=== PATIENT | female | born 1990 | race Caucasian/White ===

== ENCOUNTER 2019-01-18 05:11 | Emergency (ER) | payer BC, MEDICAID ==
[2019-01-18] MEDS ORDERED: KETOROLAC TROMETHAMINE INJ/PF 30 MG/1 ML SDV IV ONE (06:43)
[2019-01-18] MEDS ORDERED: ONDANSETRON HCL INJ/PF 4 MG/2 ML SDV IV ONE (06:43)
[2019-01-18 07:28] LABS: ABSOLUTE EOSINOPHILS # (AUTO) 0.2 10^3/uL (0.0-0.6); ABSOLUTE MONOCYTES (AUTO) 0.4 10^3/uL (0.1-1.4); ABSOLUTE NEUT (AUTO) 4.2 10^3/uL (1.7-8.2); BASOPHILS % (AUTO) 0.6 % (0-2); EOSINOPHILS % (AUTO) 2.8 % (0-6); HEMATOCRIT 39.2 % (36.0-47.0); HEMOGLOBIN 13.1 g/dL (12.0-15.5); LYMPHOCYTES % (AUTO) 17.3 % (13-45); MEAN CORPUSCULAR HEMOGLOBIN 27.8 pg (27.0-33.4); MEAN CORPUSCULAR HGB CONC 33.6 g/dL (32.0-36.0); MEAN CORPUSCULAR VOLUME 83 fl (80-97); MONOCYTES % (AUTO) 6.4 % (3-13); PLATELET COUNT 234 10^3/uL (150-450); RED BLOOD COUNT 4.72 10^6/uL (3.72-5.28); RED CELL DISTRIBUTION WIDTH 16.6 % (11.5-14.0); SEGMENTED NEUTROPHILS % (AUTO) 72.9 % (42-78); TOTAL CELLS COUNTED % (AUTO) 100 %; WHITE BLOOD COUNT 5.8 10^3/uL (4.0-10.5)
[2019-01-18 07:46] LABS: ALANINE AMINOTRANSFERASE 539 U/L (9-52); ALBUMIN 4.1 g/dL (3.5-5.0); ALKALINE PHOSPHATASE 291 U/L (38-126); ANION GAP 7 (5-19); BILIRUBIN,DIRECT 1.3 mg/dL (0.0-0.4); BILIRUBIN,TOTAL 1.8 mg/dL (0.2-1.3); BLOOD UREA NITROGEN 11 mg/dL (7-20); CALCIUM 9.9 mg/dL (8.4-10.2); CARBON DIOXIDE 30 mmol/L (22-30); CHLORIDE 105 mmol/L (98-107); GLUCOSE 93 mg/dL (75-110); LIPASE 565.5 U/L (23-300); POTASSIUM 4.9 mmol/L (3.6-5.0); SODIUM 142.4 mmol/L (137-145); TOTAL PROTEIN 7.8 g/dL (6.3-8.2)
[2019-01-18 07:53] LABS: AMORPHOUS SEDIMENT,URINE TRACE /HPF; APPEARANCE,URINE SLIGHTLY-CLOUDY; BILIRUBIN,URINE NEGATIVE (NEGATIVE); COLOR,URINE YELLOW; GLUCOSE, URINE NEGATIVE (NEGATIVE); KETONES,URINE NEGATIVE (NEGATIVE); LEUKOCYTE ESTERASE,URINE SMALL (NEGATIVE); NITRITE,URINE NEGATIVE (NEGATIVE); PROTEIN,URINE NEGATIVE (NEGATIVE)
[2019-01-18 07:54] LABS: ASPARTATE AMINO TRANSFERASE 797 U/L (14-36)
--- NOTE | 2019-01-18 08:27 | RADIOLOGY REPORT (SQ) ---
EXAM DESCRIPTION: U/S ABDOMEN LIMITED W/O DOP COMPLETED DATE/TIME: 01/18/2019 8:08 am REASON FOR STUDY: abdominal pain, eval gallbladder COMPARISON: Abdominal ultrasound 02/07/2015 TECHNIQUE: Dynamic and static grayscale images acquired of the abdomen and recorded on PACS. Monique lozoya selected color Doppler and spectral images recorded. LIMITATIONS: None. FINDINGS: PANCREAS: Midline pancreas unremarkable LIVER: No masses. Echotexture normal. LIVER VASCULATURE: Normal directional flow of the main portal vein and hepatic veins. GALLBLADDER: Innumerable tiny stones layer in the gallbladder causing a [id number] complex. No gallbladder wall thickening or pericholecystic fluid. ULTRASOUND-DETECTED LINDER'S SIGN: Negative. INTRAHEPATIC DUCTS AND COMMON DUCT: CBD and intrahepatic ducts normal caliber. No filling defects. INFERIOR VENA CAVA: Normal flow. AORTA: No aneurysm. RIGHT KIDNEY: Normal size. Normal echogenicity. No solid or suspicious masses. No hydronephrosis. No calcifications. PERITONEAL AND RIGHT PLEURAL SPACE: No ascites or effusions. OTHER: No other significant findings. IMPRESSION: Innumerable tiny stones in the gallbladder. No pericholecystic fluid or sonographic Mur phy's sign TECHNICAL DOCUMENTATION: JOB ID: [id number] [employer]- All Rights Reserved Reading location - IP/workstation name: [email or web address]
--- NOTE | 2019-01-18 09:58 | ER Document Report ---
ED General - General Chief Complaint: Abdominal Pain Stated Complaint: ABDOMINAL PAIN Time Seen by Provider: 01/18/19 06:28 TRAVEL OUTSIDE OF THE [place] IN LAST 30 DAYS: No - HPI Notes: Patient is a 28-year-old female presents emergency department for abdominal pain. Is been present for the last 5-6 weeks. It started approximately 33 weeks gestation of her . She states it was intermittent since then but it seems to be getting more frequent. She has now 2 weeks and the pain is gotten worse. She states it seems to be worsened by food. She has had nausea frequently, occasional episodes of nonbloody, nonbilious emesis. Normal urinary symptoms She was induced at 37 weeks for preeclampsia. is doing well, as his mother. She states she continues to have some vaginal bleeding but it is not significant. - Related Data Allergies/Adverse Reactions: Sulfa (Sulfonamide Antibiotics) Allergy (Severe, Verified 03/25/16 07:03) Facial swelling Past Medical History - General Information source: Patient - Social History Smoking Status: Former Smoker Family History: Reviewed & Not Pertinent Patient has suicidal ideation: No Patient has homicidal ideation: No Renal/ Medical History: Denies: Hx Peritoneal Dialysis Past Surgical History: Reports: Hx Gynecologic Surgery - , Hx Oral Surgery - wisdom teeth Review of Systems - Review of Systems Constitutional: No symptoms reported EENT: No symptoms reported Cardiovascular: No symptoms reported Respiratory: No symptoms reported Gastrointestinal: See HPI Genitourinary: No symptoms reported Female Genitourinary: See HPI Musculoskeletal: No symptoms reported Skin: No symptoms reported Neurological/Psychological: No symptoms reported Physical Exam - Vital signs Vitals: Temp Pulse Resp BP Pulse Ox 98.4 F 98 16 141/96 H 97 01/18/19 05:18 01/18/19 05:18 01/18/19 05:18 01/18/19 05:18 01/18/19 05:18 - Notes Notes: Vital signs reviewed, please refer to chart. Patient is normocephalic, atraumatic. Pupils equal round, reactive to light. Neck is supple without meningismus. Heart is regular rate and rhythm. Lungs are clear to auscultation bilaterally. Abdomen is soft, moderate right upper quadrant tenderness without guarding, normoactive bowel sounds throughout. Extremities without cyanosis, clubbing, edema. Peripheral pulses are equal. Skin is warm and dry. Patient is awake, alert, neurological exam is nonfocal. Course - Re-evaluation Re-evalutation: 01/18/19 09:57 Patient presents emergency department for evaluation. Given her history, biliary colic is highest on my list. Laboratory investigations and imaging were ordered. Imaging did reveal innumerable gallstones, but no signs of cholecystitis, CBD dilation, or a clear oil duct obstruction. Laboratory investigations, however, did reveal elevated AST, ALT, alk phos, mildly elevated lipase. The patient here feels completely asymptomatic. Given these laboratory abnormalities, I did contact on-call surgeon, Dr. Luque. He will come down to see the patient. 01/18/19 12:52 Dr. Luque came down at 11 AM to see the patient. He was concerned that she did have a CBD stone given her lab work. He asked that an MRCP be performed. This was performed. Patient's pain remained minimal. Her abdominal exam remained nonsurgical. MRCP failed to reveal any signs of obstruction or filling defect in the common bile duct. Patient is hopeful to be discharged. She has a and 3-year-old at home, no other family support besides her , who has to work. She states she may be able to be seen for potential cholecystectomy next week. I discussed this with Dr. Luque. He asked that lab work be drawn on Tuesday, and she will follow-up with the surgical clinic. He also asked that strict discharge instructions, detailing symptoms that should prompt her return, as well as a low-fat diet, be given. These were given both verbally and in discharge instructions. She is to return to the emergency department with worsening or new concerning symptoms of any sort. - Vital Signs Vital signs: Temp Pulse Resp BP Pulse Ox 98.2 F 82 16 133/83 H 99 01/18/19 10:11 01/18/19 10:11 01/18/19 10:11 01/18/19 10:11 01/18/19 10:11 - Laboratory Result Diagrams: 01/18/19 07:10 01/18/19 07:10 Laboratory results interpreted by me: 01/18/19 01/18/19 01/18/19 07:10 07:10 07:10 RDW 16.6 H Total Bilirubin 1.8 H Direct Bilirubin 1.3 H AST 797 H ALT 539 H Alkaline Phosphatase 291 H Lipase 565.5 H Urine Blood MODERATE H Urine Urobilinogen 2.0 H Ur Leukocyte Esterase SMALL H - Diagnostic Test Radiology reviewed: Reports reviewed - Innumerable gallstones, no other acute process Discharge - Discharge Clinical Impression: Cholelithiasis, Abnormal LFTs, Right upper quadrant abdominal pain Condition: Stable Disposition: HOME, SELF-CARE Instructions: Gallbladder Disease ([facility]) Additional Instructions: You need to have lab work redrawn on Tuesday. Follow-up with the surgical clinic on Tuesday as well. You should avoid fat in your diet as discussed. If you develop fevers, vomiting, increased abdominal pain, or any other new or concerning symptoms, return immediately to the emergency department for reevaluation. Forms: Follow-Up Laboratory Testing Referrals: MIKE LUQUE MD [[facility]] - Follow up as needed
--- NOTE | 2019-01-18 12:25 | RADIOLOGY REPORT (SQ) ---
EXAM DESCRIPTION: MRI ABDOMEN WITHOUT COMPLETED DATE/TIME: 01/18/2019 12:06 pm REASON FOR STUDY: elevated lfts, cholelithiasis COMPARISON: None. TECHNIQUE: Noncontrast MRCP. Source and MIP images reviewed. LIMITATIONS: None. FINDINGS: GALLBLADDER: There are numerous gallstones. INTRAHEPATIC DUCTS: Nondilated. EXTRAHEPATIC DUCTS: Common duct is normal caliber. No dilatation of the pancreatic duct. No ductal filling defects noted. PANCREAS: Generally homogeneous, no gross mass or significant signal alteration. No surrounding infl ammatory changes or fluid. Pancreatic duct is normal. LIVER, SPLEEN, KIDNEYS, ADRENALS: No significant abnormality. VESSELS: No evidence of aneurysm. Grossly appropriate flow voids in the major vascular structures. LUNG BASES: Grossly clear. OTHER: No other significant finding. IMPRESSION: Gallstones. No other significant findings. TECHNICAL DOCUMENTATION: JOB ID: [id number] [employer]- All Rights Reserved Reading location - IP/workstation name: [email or web address]
[2019-01-18 12:53] VITALS: BP 132/95
--- NOTE | 2019-01-18 13:52 | PDOC CONSULTATION ---
Consultation Consult Date: 01/18/19 Consult reason:: gallstoneswith elevated LFTs History of Present Illness History of Present Illness: TEVIN CAMARILLO is a 28 year old female who is 2 weeks post has been c/o abdominal pains about 5-6 weeks worse after eating a fatty meal.Came to ED because of severe abdominal pains started last night after a fatty meal. Had US which showed gallstones. Her LFTs and lipase are elevated. Patient is feeling better when seen and wants to go home to take care of since her has to go back to work. Suggested MRCP. This showed normal CBD. Social History Smoking Status: Former Smoker Family History Family History: Reviewed & Not Pertinent Parental Family History Reviewed: Yes Children Family History Reviewed: No Sibling(s) Family History Reviewed.: No Medication/Allergy Home Medications: RX: No.116/Iron/Folic/Dha [Expecta Combo Pack] 1 tab PO DAILY 01/30/16 RX: Ferrous Sulfate [Feosol 325 mg Tablet] 325 mg PO BID #60 tablet 03/27/16 Allergies/Adverse Reactions: Sulfa (Sulfonamide Antibiotics) Allergy (Severe, Verified 03/25/16 07:03) Facial swelling Review of Systems Constitutional: PRESENT: other - denies fever/chills Ears: PRESENT: other - no visual/hearing changes Cardiovascular: PRESENT: other - no chest pains/cough Gastrointestinal: PRESENT: abdominal pain Physical Exam Vital Signs: Temp Pulse Resp BP Pulse Ox 97.9 F 88 16 132/95 H 100 01/18/19 12:48 01/18/19 12:48 01/18/19 12:48 01/18/19 12:48 01/18/19 12:48 Intake & Output 01/17/19 01/18/19 01/19/19 06:59 06:59 06:59 Weight 71.6 kg General appearance: PRESENT: no acute distress Head exam: PRESENT: atraumatic Eye exam: PRESENT: conjunctiva pink Mouth exam: PRESENT: moist Neck exam: PRESENT: full ROM Respiratory exam: PRESENT: unlabored Cardiovascular exam: PRESENT: RRR Pulses: PRESENT: normal radial pulses Vascular exam: PRESENT: normal capillary refill GI/Abdominal exam: PRESENT: soft - non temder Rectal exam: PRESENT: deferred Extremities exam: PRESENT: full ROM Musculoskeletal exam: PRESENT: ambulatory Neurological exam: PRESENT: alert, oriented to person, oriented to place, oriented to time, oriented to situation Psychiatric exam: PRESENT: appropriate affect Skin exam: PRESENT: normal color, warm Results Laboratory Results: 01/18/19 07:10 01/18/19 07:10 01/18/19 01/18/19 01/18/19 07:10 07:10 07:10 WBC 5.8 RBC 4.72 Hgb 13.1 Hct 39.2 MCV 83 MCH 27.8 MCHC 33.6 RDW 16.6 H Plt Count 234 Seg Neutrophils % 72.9 Lymphocytes % 17.3 Monocytes % 6.4 Eosinophils % 2.8 Basophils % 0.6 Absolute Neutrophils 4.2 Absolute Lymphocytes 1.0 Absolute Monocytes 0.4 Absolute Eosinophils 0.2 Absolute Basophils 0.0 Sodium 142.4 Potassium 4.9 Chloride 105 Carbon Dioxide 30 Anion Gap 7 BUN 11 Creatinine 0.70 Est GFR ( Amer) > 60 Est GFR (Non-Af Amer) > 60 Glucose 93 Calcium 9.9 Total Bilirubin 1.8 H AST 797 H ALT 539 H Alkaline Phosphatase 291 H Total Protein 7.8 Albumin 4.1 Lipase 565.5 H Urine Color YELLOW Urine Appearance SLIGHTLY-CLOUDY Urine pH 9.0 Ur Specific [place] 1.010 Urine Protein NEGATIVE Urine Glucose (UA) NEGATIVE Urine Ketones NEGATIVE Urine Blood MODERATE H Urine Nitrite NEGATIVE Ur Leukocyte Esterase SMALL H Urine WBC (Auto) 8 Urine RBC (Auto) 1 Impressions: Abdomen Ultrasound 01/18/19 06:44 IMPRESSION: Innumerable tiny stones in the gallbladder. No pericholecystic fluid or sonographic Bunch's sign Abdomen MRI 01/18/19 11:13 IMPRESSION: Gallstones. No other significant findings. Assessment & Plan - Diagnosis (1) Abnormal LFTs Is this a current diagnosis for this admission?: Yes (2) Anemia Is this a current diagnosis for this admission?: Yes (3) Cholelithiasis Is this a current diagnosis for this admission?: Yes (4) Right upper quadrant abdominal pain Is this a current diagnosis for this admission?: Yes - Time Time Spent: 30 to 50 Minutes - Plan Summary Plan Summary: Patient wants to go home despite suggestion to stay and have lap ruben Asked ER physician to arrange surgical clinic follow up after weekend and instruct patient for a low fat diet. Give prescription for repeat blood work after a few days and instruct patient to come back if pains recur or develops chills and fever or highly colored urine/jaundice.
== END 2019-01-18 13:17 | disposition home or self-care (01) ==
LOC: ER 05:11
DX: O99.613 Diseases of the digestive system complicating pregnancy, third trimester (principal); K80.20 Calculus of gallbladder without cholecystitis without obstruction; O26.893 Other specified pregnancy related conditions, third trimester; R10.11 Right upper quadrant pain; R94.5 Abnormal results of liver function studies; O21.9 Vomiting of pregnancy, unspecified; Z3A.33 33 weeks gestation of pregnancy; Z87.891 Personal history of nicotine dependence
CPT/HCPCS: 99285; 96374; 96375; 36415; 83690; 85025; 81025; 80053; 81001; 74181; 76705; J1885; J2405

== ENCOUNTER 2019-01-21 18:55 | Observation (INO) | payer MEDICAID ==
[~2019-01-21 18:55] MED LIST: DEXAMETHASONE SOD PHOSPHATE INJ 4 MG/1 ML VIAL ONE; GLYCOPYRROLATE 1 MG/5 ML SYRINGE ONE; KETOROLAC TROMETHAMINE 60 MG/2 ML SDV ONE; NEOSTIGMINE METHYLSULFATE 10 MG/10 ML VIAL ONE; ONDANSETRON HCL INJ/PF 4 MG/2 ML SDV ONE; ROCURONIUM BROMIDE INJ 50 MG/5 ML VIAL IV ONE; SUCCINYLCHOLINE CHLORIDE INJ 200 MG/10 ML VIAL ONE
[2019-01-21] MEDS ORDERED: FENTANYL CITRATE INJ/PF 100 MCG/2 ML AMPUL IV ONE (20:14)
[2019-01-21] MEDS ORDERED: ONDANSETRON HCL INJ/PF 4 MG/2 ML SDV IV ONE (20:14)
[2019-01-21] MEDS ORDERED: NORMAL SALINE 1000 ML 1,000 ML IV ONE (20:14)
--- NOTE | 2019-01-21 20:16 | ER Document Report ---
ED Medical Screen (RME) - General Chief Complaint: Abdominal Pain Stated Complaint: ABDOMINAL PAIN Time Seen by Provider: 01/21/19 20:10 Mode of Arrival: Ambulatory Information source: Patient Notes: Patient presents complaining of abdominal pain to the right upper quadrant area. Patient was seen here 3 days ago for this complaint was diagnosed with gallstones. They are wanting to schedule patient for surgery although she had a at home and did not have help taking care of her child. Patient states she since got assistance at home and her pain worsened today which prompted her return visit. Patient does complain of nausea. Patient denies any fever. I have greeted and performed a rapid initial assessment of this patient. A comprehensive ED assessment and evaluation of the patient, analysis of test results and completion of the medical decision making process will be conducted by additional ED providers. TRAVEL OUTSIDE OF THE [place] IN LAST 30 DAYS: No - Related Data Allergies/Adverse Reactions: Sulfa (Sulfonamide Antibiotics) Allergy (Severe, Verified 01/21/19 19:08) Facial swelling Past Medical History - Social History Chew tobacco use (# tins/day): No Frequency of alcohol use: None Drug Abuse: None Renal/ Medical History: Denies: Hx Peritoneal Dialysis Past Surgical History: Reports: Hx Gynecologic Surgery - , Hx Oral Surgery - wisdom teeth Physical Exam - Vital signs Vitals: Temp Pulse Resp BP Pulse Ox 98.1 F 73 20 137/92 H 99 01/21/19 19:23 01/21/19 19:23 01/21/19 19:23 01/21/19 19:23 01/21/19 19:23 - Abdominal Tenderness: Tender - Right upper quadrant Course - Vital Signs Vital signs: Temp Pulse Resp BP Pulse Ox 98.1 F 73 20 137/92 H 99 01/21/19 19:23 01/21/19 19:23 01/21/19 19:23 01/21/19 19:23 01/21/19 19:23
[2019-01-21 20:49] LABS: ABSOLUTE BASOPHILS # (AUTO) 0.1 10^3/uL (0.0-0.2); ABSOLUTE EOSINOPHILS # (AUTO) 0.3 10^3/uL (0.0-0.6); ABSOLUTE LYMPHOCYTES (AUTO) 2.3 10^3/uL (0.5-4.7); ABSOLUTE MONOCYTES (AUTO) 0.4 10^3/uL (0.1-1.4); ABSOLUTE NEUT (AUTO) 2.8 10^3/uL (1.7-8.2); EOSINOPHILS % (AUTO) 4.6 % (0-6); HEMATOCRIT 37.1 % (36.0-47.0); HEMOGLOBIN 12.6 g/dL (12.0-15.5); LYMPHOCYTES % (AUTO) 39.6 % (13-45); MEAN CORPUSCULAR HEMOGLOBIN 28.4 pg (27.0-33.4); MEAN CORPUSCULAR HGB CONC 33.9 g/dL (32.0-36.0); MEAN CORPUSCULAR VOLUME 84 fl (80-97); MONOCYTES % (AUTO) 6.3 % (3-13); PLATELET COUNT 202 10^3/uL (150-450); RED BLOOD COUNT 4.43 10^6/uL (3.72-5.28); RED CELL DISTRIBUTION WIDTH 15.8 % (11.5-14.0); SEGMENTED NEUTROPHILS % (AUTO) 48.5 % (42-78); TOTAL CELLS COUNTED % (AUTO) 100 %; WHITE BLOOD COUNT 5.7 10^3/uL (4.0-10.5)
[2019-01-21 20:58] LABS: APPEARANCE,URINE CLEAR; BILIRUBIN,URINE NEGATIVE (NEGATIVE); COLOR,URINE YELLOW; GLUCOSE, URINE NEGATIVE (NEGATIVE); KETONES,URINE NEGATIVE (NEGATIVE); LEUKOCYTE ESTERASE,URINE MODERATE (NEGATIVE); NITRITE,URINE NEGATIVE (NEGATIVE); PROTEIN,URINE NEGATIVE (NEGATIVE); URINE SPECIFIC GRAVITY 1.023; UROBILINOGEN,URINE NEGATIVE mg/dL (<2.0)
[2019-01-21 21:05] LABS: ALANINE AMINOTRANSFERASE 250 U/L (9-52); ALKALINE PHOSPHATASE 209 U/L (38-126); ANION GAP 10 (5-19); ASPARTATE AMINO TRANSFERASE 47 U/L (14-36); BILIRUBIN,DIRECT 0.2 mg/dL (0.0-0.4); BILIRUBIN,TOTAL 0.3 mg/dL (0.2-1.3); BLOOD UREA NITROGEN 16 mg/dL (7-20); CALCIUM 9.7 mg/dL (8.4-10.2); CARBON DIOXIDE 27 mmol/L (22-30); CHLORIDE 103 mmol/L (98-107); GLUCOSE 88 mg/dL (75-110); LIPASE 96.7 U/L (23-300); POTASSIUM 4.5 mmol/L (3.6-5.0); SODIUM 140.4 mmol/L (137-145); TOTAL PROTEIN 7.4 g/dL (6.3-8.2)
[2019-01-21] MEDS ORDERED: ONDANSETRON HCL INJ/PF 4 MG/2 ML SDV IV PRN (22:48)
[2019-01-21] MEDS ORDERED: PIPERACILLIN/TAZOBACTAM 3.375 GM VIAL IV PRN (22:58)
[2019-01-21] MEDS ORDERED: KETOROLAC TROMETHAMINE INJ/PF 30 MG/1 ML SDV IV ONE (23:00)
[2019-01-21] MEDS ORDERED: FAMOTIDINE INJ/PF 20 MG/2 ML SDV IV ONE (23:00)
--- NOTE | 2019-01-21 23:06 | PDOC H&P ---
History of Present Illness Patient complains of: Right upper quadrant pain, history of recent biliary pancreatitis History of Present Illness: TEVIN CAMARILLO is a 28 year old female seen in the ER 3 days ago for similar c omplaints. At that time she was found to have biliary pancreatitis. The patient was offered hospital admission, but refused and returned home. The patient's pain has continued. She reports constant, sharp, stabbing right upper quadrant pain that is unrelenting. Nothing makes it better. Movement, palpation, and eating make it worse. She has had associated nausea, without vomiting. She rates her pain as 10 out of 10. Currently she denies chest pain, shortness of breath, headache, fevers, chills, fatigue, malaise, blurry vision, dizziness, orthostasis. Past Medical History Cardiac Medical History: Reports: Hypertension Renal/ Medical History: Reports: Other - PCOS Social History Smoking Status: Never Smoker Frequency of Alcohol Use: None Hx Recreational Drug Use: No Hx Prescription Drug Abuse: No Family History Family History: Reviewed & Not Pertinent Parental Family History Reviewed: Yes Children Family History Reviewed: Yes Sibling(s) Family History Reviewed.: Yes Medication/Allergy Home Medications: No.116/Iron/Folic/Dha [Expecta Combo Pack] 1 tab PO DAILY 01/30/16 Ferrous Sulfate [Feosol 325 mg Tablet] 325 mg PO BID #60 tablet 03/27/16 Allergies/Adverse Reactions: Sulfa (Sulfonamide Antibiotics) Allergy (Severe, Verified 01/21/19 19:08) Facial swelling Review of Systems Constitutional: ABSENT: anorexia, chills, weakness Eyes: ABSENT: visual disturbances Ears: ABSENT: hearing changes Nose, Mouth, and Throat: ABSENT: mouth pain, sore throat Cardiovascular: ABSENT: chest pain, dyspnea on exertion Respiratory: ABSENT: cough, dyspnea Gastrointestinal: PRESENT: abdominal pain, nausea. ABSENT: hematemesis, hematochezia, melena Genitourinary: ABSENT: dysuria Musculoskeletal: PRESENT: back pain Integumentary: ABSENT: pruritus, rash Neurological: ABSENT: confusion, convulsions, dizziness Psychiatric: PRESENT: anxiety. ABSENT: depression, hallucinations Endocrine: ABSENT: cold intolerance, heat intolerance Hematologic/Lymphatic: ABSENT: easy bleeding, easy bruising Physical Exam Vital Signs: Temp Pulse Resp BP Pulse Ox 98.1 F 73 20 137/92 H 99 01/21/19 19:23 04/21/19 19:23 01/21/19 19:23 01/21/19 19:23 01/21/19 19:23 Intake & Output 01/20/19 01/21/19 01/22/19 06:59 06:59 06:59 Weight 71.2 kg General appearance: PRESENT: no acute distress, cooperative Head exam: PRESENT: atraumatic, normocephalic Eye exam: PRESENT: EOMI, PERRLA. ABSENT: scleral icterus Mouth exam: PRESENT: moist, neck supple Neck exam: ABSENT: meningismus, tenderness, thyromegaly, tracheal deviation Respiratory exam: PRESENT: clear to auscultation [place], unlabored. ABSENT: chest wall tenderness, tachypnea, wheezes Cardiovascular exam: PRESENT: RRR Pulses: PRESENT: normal radial pulses GI/Abdominal exam: PRESENT: soft, tenderness - Right upper quadrant. ABSENT: distended, firm, guarding Rectal exam: PRESENT: deferred Extremities exam: ABSENT: clubbing Musculoskeletal exam: ABSENT: deformity Neurological exam: PRESENT: alert, awake, oriented to person, oriented to place, oriented to time, oriented to situation, CN II-XII grossly intact Psychiatric exam: PRESENT: anxious. ABSENT: agitated, depressed Focused psych exam: ABSENT: delusional Skin exam: ABSENT: cyanosis, erythema, jaundice Results Laboratory Results: 01/21/19 20:35 01/21/19 20:35 01/21/19 01/21/19 01/21/19 20:25 20:35 20:35 WBC 5.7 RBC 4.43 Hgb 12.6 Hct 37.1 MCV 84 MCH 28.4 MCHC 33.9 RDW 15.8 H Plt Count 202 Seg Neutrophils % 48.5 Lymphocytes % 39.6 Monocytes % 6.3 Eosinophils % 4.6 Basophils % 1.0 Absolute Neutrophils 2.8 Absolute Lymphocytes 2.3 Absolute Monocytes 0.4 Absolute Eosinophils 0.3 Absolute Basophils 0.1 Sodium 140.4 Potassium 4.5 Chloride 103 Carbon Dioxide 27 Anion Gap 10 BUN 16 Creatinine 0.79 Est GFR ( Amer) > 60 Est GFR (Non-Af Amer) > 60 Glucose 88 Calcium 9.7 Total Bilirubin 0.3 AST 47 H ALT 250 H Alkaline Phosphatase 209 H Total Protein 7.4 Albumin 4.0 Lipase 96.7 Urine Color YELLOW Urine Appearance CLEAR Urine pH 6.0 Ur Specific [place] 1.023 Urine Protein NEGATIVE Urine Glucose (UA) NEGATIVE Urine Ketones NEGATIVE Urine Blood NEGATIVE Urine Nitrite NEGATIVE Ur Leukocyte Esterase MODERATE H Urine WBC (Auto) 49 Urine RBC (Auto) 2 Assessment & Plan - Diagnosis (1) Cholecystitis Is this a current diagnosis for this admission?: Yes (2) Hx of pancreatitis Is this a current diagnosis for this admission?: Yes - Plan Summary Plan Summary: This is a 28-year-old female with constant right upper quadrant pain, gallstones, and a recent episode of biliary pancreatitis. The patient's symptoms are unrelenting and constant. I believe the patient is experiencing cholecystitis. I will admit the patient, place her on antibiotics, and plan for cholecystectomy in the near future. This has been discussed with the patient and her at length. They are in agreement with the treatment plan.
--- NOTE | 2019-01-21 23:07 | ER Document Report ---
Entered by SIMIN CHACKO SCRIBE 01/21/19 [id number] Acting as scribe for:ZEKE RIOS DO ED GI/ - General Chief Complaint: Abdominal Pain Stated Complaint: ABDOMINAL PAIN Time Seen by Provider: 01/21/19 20:10 Mode of Arrival: Ambulatory Information source: Patient Notes: 28-year-old female who presents to the emergency department today with complaints of right upper quadrant abdominal pain which initially began about x6 weeks ago. Patient states that when she was evaluated for this pain at that time, she was found to have gallstones but they elected not to do surgery due to the patient being . The patient was seen here at this facility x3 days ago for a similar right upper quadrant abdominal pain. At that time, it was suggested that the patient be admitted to the hospital for a cholecystectomy however the patient declined due to having a at home and no one to help watch the infant. Patient reports that her [id number] is now in town and she would be agreeable to admission if indicated. Patient has a scheduled appointment tomorrow morning at [facility] for a consultation. Patient states that despite eating a low-fat diet for the last x3 days her pain has remained consistent. Patient states she has vomited but denies any fevers. Mom states she is not breast-feeding her . TRAVEL OUTSIDE OF THE [place] IN LAST 30 DAYS: No - Related Data Allergies/Adverse Reactions: Sulfa (Sulfonamide Antibiotics) Allergy (Severe, Verified 01/21/19 19:08) Facial swelling Past Medical History - General Information source: Patient, [facility] - Social History Smoking Status: Never Smoker Cigarette use (# per day): No Chew tobacco use (# tins/day): No Frequency of alcohol use: None Drug Abuse: None Lives with: Family Family History: Reviewed & Not Pertinent Patient has suicidal ideation: No Patient has homicidal ideation: No Endocrine Medical History: Reports: Hx Hypothyroidism Renal/ Medical History: Reports: Other - PCOS Past Surgical History: Reports: Hx Gynecologic Surgery - , Hx Oral Surgery - wisdom teeth Review of Systems - Review of Systems Constitutional: denies: Fever EENT: No symptoms reported Cardiovascular: No symptoms reported Respiratory: No symptoms reported Gastrointestinal: See HPI, Abdominal pain - RUQ, Nausea, Vomiting Genitourinary: No symptoms reported Female Genitourinary: No symptoms reported Musculoskeletal: No symptoms reported Skin: No symptoms reported Hematologic/Lymphatic: No symptoms reported Neurological/Psychological: No symptoms reported -: Yes All other systems reviewed and negative Physical Exam - Vital signs Vitals: Temp Pulse Resp BP Pulse Ox 98.1 F 73 20 137/92 H 99 01/21/19 19:23 01/21/19 19:23 01/21/19 19:23 01/21/19 19:23 01/21/19 19:23 Interpretation: Hypertensive - Notes Notes: PHYSICAL EXAM GENERAL: Alert, interacts well. No acute distress. HEAD: Normocephalic, atraumatic. EYES: Pupils equal, round, and reactive to light. Extraocular movements intact. ENT: Oral mucosa moist, tongue midline. NECK: Full range of motion. Supple. Trachea midline. LUNGS: No respiratory distress. HEART: Regular rate and rhythm. ABDOMEN: Soft, negative li's sign, right upper quadrant tenderness with palp ation. Non-distended. Bowel sounds present in all 4 quadrants. No guarding, rigidity, or rebound. EXTREMITIES: Moves all 4 extremities spontaneously. NEUROLOGICAL: Alert and oriented x3. Normal speech. PSYCH: Normal affect, normal mood. SKIN: Warm, dry, normal turgor. No rashes or lesions noted. Course - Re-evaluation Re-evalutation: 01/21/19 23:05 No evidence of acute obstruction, however she is very symptomatic and will lik lacey continue to have biliary colic if her gallbladder is not removed. Discussed case with Dr. Duran the surgeon on-call who agrees to place patient on his service for cholecystectomy tomorrow. 01/21/19 23:06 - Vital Signs Vital signs: Temp Pulse Resp BP Pulse Ox 98.1 F 73 20 137/92 H 99 01/21/19 19:23 01/21/19 19:23 01/21/19 19:23 01/21/19 19:23 01/21/19 19:23 - Laboratory Result Diagrams: 01/21/19 20:35 01/21/19 20:35 Laboratory results interpreted by me: 01/21/19 01/21/19 01/21/19 20:25 20:35 20:35 RDW 15.8 H AST 47 H ALT 250 H Alkaline Phosphatase 209 H Ur Leukocyte Esterase MODERATE H Discharge - Discharge Clinical Impression: Cholecystitis Condition: Fair Disposition: ADMITTED OBSERVATION Admitting Provider: Surgicalist - Safely Unit Admitted: Surgical Floor I personally performed the services described in the documentation, reviewed and edited the documentation which was dictated to the scribe in my presence, and it accurately records my words and actions.
[2019-01-22] MEDS: PIPERACILLIN SODIUM/TAZOBACTAM 3.375 GM in NORMAL SALINE 100 ML IV SCH ×4 (00:13→15:40)
[2019-01-22] MEDS: MORPHINE SULFATE 10 MG/ML INJ IV PRN ×2 (04:51→15:49)
[2019-01-22] MEDS: POTASSI CL 20 MEQ/D5-1/2NS 1L 1,000 ML IV PRN ×2 (05:05→15:48)
[2019-01-22] MEDS ORDERED: PIPERACILLIN/TAZOBACTAM 3.375 GM VIAL IV ONE (05:09)
[2019-01-22] MEDS ORDERED: KETOROLAC TROMETHAMINE INJ/PF 30 MG/1 ML SDV IV SCH (06:00)
[2019-01-22 08:02] LABS: ALANINE AMINOTRANSFERASE 168 U/L (9-52); ALKALINE PHOSPHATASE 147 U/L (38-126); ASPARTATE AMINO TRANSFERASE 35 U/L (14-36); BILIRUBIN,DIRECT 0.2 mg/dL (0.0-0.4); BILIRUBIN,TOTAL 0.5 mg/dL (0.2-1.3); BLOOD UREA NITROGEN 12 mg/dL (7-20); CALCIUM 8.7 mg/dL (8.4-10.2); GLUCOSE 91 mg/dL (75-110); POTASSIUM 4.1 mmol/L (3.6-5.0); TOTAL PROTEIN 5.7 g/dL (6.3-8.2)
[2019-01-22 08:07] LABS: ANION GAP 6 (5-19); CARBON DIOXIDE 24 mmol/L (22-30); CHLORIDE 110 mmol/L (98-107); SODIUM 139.5 mmol/L (137-145)
[2019-01-22] MEDS ORDERED: FAMOTIDINE INJ/PF 20 MG/2 ML SDV IV SCH (10:00)
[2019-01-22] MEDS ORDERED: BUPIVACAINE HCL 0.25 % INJ/PF (2.5 MG/1 ML) 30 ML VIAL ONE (10:07)
[2019-01-22] MEDS ORDERED: FENTANYL CITRATE INJ/PF 250 MCG/5 ML AMPULE ONE (10:17)
[2019-01-22] MEDS ORDERED: MIDAZOLAM 2 MG/2 ML INJ ONE (10:18)
[2019-01-22] MEDS ORDERED: PROPOFOL INJ 200 MG/20 ML VIAL IV ONE (10:18)
[2019-01-22] MEDS ORDERED: ACETAMINOPHEN 1,000 MG/100 ML RTUPB IV ONE (10:18)
[2019-01-22] MEDS ORDERED: PROMETHAZINE HCL INJ 25 MG/1 ML VIAL IV PRN ×2 (10:55)
[2019-01-22] MEDS ORDERED: MEPERIDINE HCL/PF INJ 25 MG/1 ML DISP.SYRIN IV PRN (10:55)
[2019-01-22] MEDS ORDERED: FENTANYL CITRATE INJ/PF 100 MCG/2 ML AMPUL IV PRN ×3 (10:55)
[2019-01-22] MEDS ORDERED: OXYCODONE-ACETAMINOPHEN 5-325 MG TABLET PO PRN ×2 (10:55)
[2019-01-22] MEDS ORDERED: DIPHENHYDRAMINE HCL 50 MG/ML VIAL IV PRN (10:55)
[2019-01-22] MEDS ORDERED: KETOROLAC TROMETHAMINE 10 MG TABLET PO PRN (11:11)
[2019-01-22] MEDS ORDERED: KETOROLAC TROMETHAMINE INJ/PF 30 MG/1 ML SDV IV PRN (11:11)
[2019-01-22] MEDS ORDERED: ONDANSETRON HCL INJ/PF 4 MG/2 ML SDV IV PRN (11:11)
--- NOTE | 2019-01-22 11:17 | Operative Report ---
Operative Report DATE OF SURGERY: 01/22/19 PREOPERATIVE DIAGNOSIS: Symptomatic cholelithiasis with cholecystitis POSTOPERATIVE DIAGNOSIS: Same OPERATION: Laparoscopic cholecystectomy SURGEON: KOMAL CABALLERO ANESTHESIA: GA TISSUE REMOVED OR ALTERED: 1 gallbladder with stones COMPLICATIONS: None ESTIMATED BLOOD LOSS: Scant INTRAOPERATIVE FINDINGS: See below PROCEDURE: After obtaining informed consent, the patient was taken to the operating room. General Anesthesia was induced; the arms were extended, and the abdomen was exposed, and prepped and draped in a sterile fashion. Instrumentation was set up for laparoscopic cholecystectomy. Surgical plan and surgical timeout were conducted. A vertical incision was made above the umbilicus, and a verres needle was inserted uneventfully into the peritoneal cavity. Pneumoperitoneum was established. The verres needle was removed and a 5 mm trocar was inserted and a 5 mm flexible laparoscope was inserted. Visualization of the peritoneal cavity confirmed safe uneventful entry. Under direct visualization 3 additional 5 mm ports were established, one in the subxiphoid position and second in the subcostal position. Visualization of the hepatobiliary anatomy revealed no anatomic variations. A grasper was placed on the fundus of the gallbladder and the gallbladder is elevated over the right surface of the liver; a second grasper was used to grasp the infundibulum of the gallbladder. The neck of the gallbladder and junction with the cystic duct was dissected out. The Cystic artery was in its usual location medial and cephalad to the cystic duct. The cystic artery was surrounded with a right angle clamp, clipped twice proximally and divided with laparoscopic scissors. We now opened the triangle of Calot by dividing the peritoneal reflection on both the medial and lateral sides of the cystic duct infundibular junction. The critical view was obtained. We now milked the cystic duct of any possible stones, clipped the cystic duct approximately 2 times once distally and divided with scissors. The gallbladder was now removed from the undersurface of the liver using hook cautery dissection. Graspers were repositioned and the gallbladder was removed uneventfully from the abdominal cavity through the super umbilical port site incision. The specimen was examined, then passed off to pathology for permanent analysis. We returned to the peritoneal cavity check for bleeding, and evidence of bile leak, and there was none. We Confirmed satisfactory placement of clips on cystic duct and cystic artery were secured . At this point we felt the operation was complete. The subcutaneous tissue was then anesthetized with quarter percent Marcaine Sponge and needle counts are correct. All ports removed under direct visualization pneumoperitoneum evacuated, and the supraumbilical port site closed with 0 Vicryl and the 5 mm port wounds closed with 3-0 Vicryl suture, benzoin and Steri-Strips. The patient was extubated, and taken to the recovery room in stable condition.
[2019-01-22] MEDS ORDERED: FENTANYL CITRATE INJ/PF 100 MCG/2 ML AMPUL ONE (11:32)
[2019-01-22 17:45] VITALS: BP 126/94
--- NOTE | 2019-01-29 19:05 | DISCHARGE SUMMARY E ---
Discharge Summary NAME: TEVIN CAMARILLO : 1990 AGE: 28Y ADMITTED: 01/21/2019 DISCHARGED: 01/22/2019 REASON FOR ADMISSION: Abdominal pain. SUMMARY OF HOSPITALIZATION: The patient is a 28-year-old female who presented to the emergency department complaining of abdominal pain. She was found to have biliary pancreatitis. She was admitted to the surgical service for definitive management. She was kept NPO on IV fluids, and the following day she was taken to the operating room, where she underwent laparoscopic cholecystectomy. She tolerated the procedure well. No complications. Later that afternoon, was ready for discharge to home. FINAL DIAGNOSIS: SYMPTOMATIC CHOLELITHIASIS WITH CHOLECYSTITIS, STATUS POST LAPAROSCOPIC CHOLECYSTECTOMY. DISPOSITION: The patient will be discharged home in the care of family. Follow up with Dr. Caballero and [facility] in approximately one to two weeks. Resume preoperative medications, diet and activity. DICTATING PHYSICIAN: KOMAL CABALLERO M.D. [id number] PHY#: [id number] ID: [id number] JOB#: [id number] ACCT: [id number] cc:Darline DUNLAP MD, M.D. [facility],
== END 2019-01-22 16:02 | disposition home or self-care (01) ==
LOC: ER 18:55 → EH 22:55 → 2S 01-22 03:46
PROVIDERS: ATTEND Surgery
PROC: 0FT44ZZ Resection of Gallbladder, Percutaneous Endoscopic Approach (ICD-10-PCS; principal; 2019-01-22 09:30)
DX: K80.12 Calculus of gallbladder with acute and chronic cholecystitis without obstruction (principal); I10 Essential (primary) hypertension; E28.2 Polycystic ovarian syndrome; Z88.2 Allergy status to sulfonamides
CPT/HCPCS: 47562; 99284; 96361; 96374; 96375; 36415 ×2; 83690; 85025; 80053 ×2; 81001; 88304 ×2; J2250; J3490 ×2; J1100; J1885 ×2; J3010 ×3; J2270; J3480; J0330; J2405; S0020; J7030; J2704; S0028; J2543; J0131; 790

== ENCOUNTER → 2019-10-19 | Outpatient (CLI) | payer OTHER ==
[2019-10-19 09:30] LABS: ABSOLUTE EOSINOPHILS # (AUTO) 0.2 10^3/uL (0.0-0.6); ABSOLUTE LYMPHOCYTES (AUTO) 1.7 10^3/uL (0.5-4.7); ABSOLUTE MONOCYTES (AUTO) 0.5 10^3/uL (0.1-1.4); BASOPHILS % (AUTO) 0.7 % (0-2); HEMATOCRIT 38.6 % (36.0-47.0); HEMOGLOBIN 13.3 g/dL (12.0-15.5); LYMPHOCYTES % (AUTO) 26.7 % (13-45); MEAN CORPUSCULAR HEMOGLOBIN 28.8 pg (27.0-33.4); MEAN CORPUSCULAR HGB CONC 34.5 g/dL (32.0-36.0); MEAN CORPUSCULAR VOLUME 84 fl (80-97); MONOCYTES % (AUTO) 8.2 % (3-13); PLATELET COUNT 205 10^3/uL (150-450); RED BLOOD COUNT 4.62 10^6/uL (3.72-5.28); SEGMENTED NEUTROPHILS % (AUTO) 61.4 % (42-78); TOTAL CELLS COUNTED % (AUTO) 100 %; WHITE BLOOD COUNT 6.5 10^3/uL (4.0-10.5)
[2019-10-19 09:51] LABS: ALBUMIN 4.6 g/dL (3.5-5.0); ALKALINE PHOSPHATASE 81 U/L (38-126); ANION GAP 10 (5-19); ASPARTATE AMINO TRANSFERASE 25 U/L (14-36); BILIRUBIN,DIRECT 0.3 mg/dL (0.0-0.4); BILIRUBIN,TOTAL 0.7 mg/dL (0.2-1.3); BLOOD UREA NITROGEN 16 mg/dL (7-20); CALCIUM 9.6 mg/dL (8.4-10.2); CARBON DIOXIDE 28 mmol/L (22-30); CHLORIDE 103 mmol/L (98-107); CHOLESTEROL 206.64 mg/dL (0-200); GLUCOSE 87 mg/dL (75-110); POTASSIUM 4.1 mmol/L (3.6-5.0); TOTAL PROTEIN 8.1 g/dL (6.3-8.2); TRIGLYCERIDES 83 mg/dL (<150)
[2019-10-19 10:02] LABS: DIRECT LDL 149 mg/dL (<100)
== END ==
LOC: OD 08:34
DX: Z00.00 Encounter for general adult medical examination without abnormal findings (principal)
CPT/HCPCS: 36415; 80053; 80061; 83036; 84443; 85025

== ENCOUNTER → 2020-03-22 | Outpatient (CLI) | payer OTHER ==
[2020-03-22 12:23] VITALS: BP 130/77
--- NOTE | 2020-03-22 12:23 | ER RDC ASSESSMENT REPORT ---
Intake - In the Last 14 days Have you traveled outside [place]?: No Have you been in close contact with someone CONFIRMED: No Worked in Healthcare?: No - Symptoms Subjective Fever([place] feverish): Yes Chills: Yes Muscule Aches: Yes Runny Nose: Yes Sore Throat: Yes Cough (New or worsening chronic cough): Yes Shortness of breath: Yes Nausea or Vomiting: Yes Headache: Yes Abdominal Pain: Yes Diarrhea(3 or more loose stools in last 24 hours): No - Do you have any of the following Chronic lung disease: Asthma or emphysema or COPD: No Cystic Fibrosis: No Diabetes: No High Blood Pressure: No Cardiovascular Disease: No Chronic Kidney Disease: No Chronic Liver Disease: No Chronic blood disorder like Sickle Cell Disease: No Weak immune system due to disease or medication: No Neurologic condition that limits movement: No Developmental delay - Moderate to Severe: No Recent (within past 2 weeks) or current : No Morbid Obesity (>100 pounds over ideal weight): No Other Comment: Patient reports a history of polycystic ovarian syndrome and thyroid disease. - Objective Temperature: 97.9 F - Oral Pulse Rate: 99 Respiratory Rate: 20 Blood Pressure: 130/77 O2 Sat by Pulse Oximetry: 95 Objective: Patient is a well-appearing 29-year-old female who presents today for COVID-19 screening. Disposition: Home; Selfcare General - General Stated Complaint: Upper respiratory symptoms x2 days Mode of Arrival: Ambulatory Information source: Patient Notes: The patient was evaluated during the global COVID-19 pandemic. That diagnosis was suspected/considered upon initial presentation. Their evaluation, treatment, and testing was consistent with current guidelines for patients who present with complaints or symptoms that may be related to COVID-19. - HPI Patient complains to provider of: Upper respiratory symptoms Onset: Other - 2 days Onset/Duration: Persistent Quality of pain: Achy Severity: Mild Pain Level: 2 Context: Generalized body aches. Associated symptoms: Body/muscle aches, Chills, Nonproductive cough, Fever, Headache, Nausea, Rhinnorhea, Shortness of breath, Sore throat Exacerbated by: Denies Relieved by: Denies Similar symptoms previously: No Recently seen / treated by doctor: No - Related Data Allergies/Adverse Reactions: Sulfa (Sulfonamide Antibiotics) Allergy (Severe, Verified 01/22/19 04:06) Facial swelling Past Medical History - Social History Smoking Status: Former Smoker Cigarette use (# per day): No - Quit smoking in 2014 Chew tobacco use (# tins/day): No Smoking Education Provided: No Frequency of alcohol use: Occasional Drug Abuse: None Occupation: Unemployed Lives with: Family Family History: Reviewed & Not Pertinent Patient has suicidal ideation: No Patient has homicidal ideation: No - Past Medical History Cardiac Medical History: Reports: Hx Hypertension Endocrine Medical History: Reports: Hx Hypothyroidism Renal/ Medical History: Denies: Hx Peritoneal Dialysis Psychiatric Medical History: Reports: Hx Depression Past Surgical History: Reports: Hx Gynecologic Surgery - , Hx Oral Surgery - wisdom teeth Physical Exam - General General appearance: Appears well In distress: None Notes: PHYSICAL EXAMINATION: GENERAL: Well-appearing and in no acute distress. HEAD: Atraumatic, normocephalic. EYES: sclera anicteric, conjunctiva are normal. ENT: nares patent. Moist mucous membranes. NECK: Normal range of motion, supple without lymphadenopathy. LUNGS: CTAB and equal. No wheezes rales or rhonchi. HEART: Regular rate and rhythm without murmurs. ABDOMEN: Soft, nontender, normal bowel sounds, no guarding. EXTREMITIES: Normal range of motion, no pitting edema. No cyanosis. BACK: No midline or CVA tenderness. NEUROLOGICAL: Cranial nerves grossly intact. Normal speech. PSYCH: Normal mood, normal affect. SKIN: Warm, Dry, normal color and turgor, no obvious lesions or rash noted. Diagnostic Results Laboratory Results: Patient notified of NEGATIVE results on Rapid Flu (A & B) and Rapid Strep. Advised Throat Culture and COVID testing are PENDING, and they will be notified of any POSITIVE culture results at a later date/time. Patient has been made aware that is currently taking 5-7 days for COVID test results, and that [facility] will call them with their COVID-19 test results, whether they are NEGATIVE or POSITIVE. Patient Education/Counseling Counseling/Education: Patient presents with upper respiratory symptoms worrisome for possible COVID- 19. Patient does not have symptoms worrisome as an emergency such as difficulty breathing, shortness of breath, chest pain, pressure, confusion or cyanosis. Patient appears suitable for discharge. Patient's vital signs are stable and patient is nontoxic in appearance. Good return precautions have been discussed with patient, patient verbalized understanding and is agreeable with discharge plan of care at this time. Patient provided COVID-19 discharge instructions to include: As a person under investigation for COVID-19, the [facility], division of public health advises you to adhere to the following guidance until your test results are reported to you. If your test result is positive, you will receive additional information from your provider and your local health department at that time. Remain at home until you are cleared by the health provider or public health authorities. Keep a log of visitors to your home, notify any visitors to your home of your isolation status. If you plan to move to a new address or leave the county, notify the local health department in your County. Call your doctor or seek care if you have an urgent medical need. Before seeking medical care, call ahead to get instructions from the provider before arriving at the medical office clinic or hospital. Notify them that you are being tested for the virus that causes COVID-19 so that arrangements can be made, as necessary, to prevent transmission to others in the healthcare setting. Next, notify the local health department in your county. If a medical emergency arises and you need to call 911, inform dispatch and the first responders that you are being tested for the virus that causes COVID-19. Next, notify the local health department in your county. Guidance for worsening S/SX: For worsening symptoms, patient has been advised to contact their Primary Care Provider, or go to the nearest Emergency Department. RDC Discharge - Discharge Clinical Impression: COVID-19 Screening URI (upper respiratory infection) Qualifiers: URI type: unspecified URI Qualified Code(s): J06.9 - Acute upper respiratory infection, unspecified Condition: Stable Disposition: Home; Selfcare
[2020-03-22 12:37] LABS: A TYPE INFLUENZA AG NEGATIVE (NEGATIVE); B INFLUENZA AG NEGATIVE (NEGATIVE)
== END ==
LOC: RDC 09:58
PROVIDERS: ATTEND Nurse Practitioner Family
DX: Z20.828 Contact with and (suspected) exposure to other viral communicable diseases (principal)
CPT/HCPCS: 36415; 87070; 87880; 87635; 87804; C9803